=== PATIENT | female | born 2000 | race Hispanic/Latino ===

== ENCOUNTER 2022-06-15 23:48 | Emergency (ER) | payer OTHER ==
[2022-06-16] MEDS ORDERED: Bacitracin 1 PK ONE (00:16)
== END 2022-06-16 00:24 | disposition home or self-care (01) ==
LOC: CSHERS 23:48
DX: S51.012D Laceration without foreign body of left elbow, subsequent encounter (principal); F17.290 Nicotine dependence, other tobacco product, uncomplicated; X58.XXXD Exposure to other specified factors, subsequent encounter

== ENCOUNTER 2022-06-16 21:34 | Emergency (ER) | payer OTHER | END 2022-06-16 22:18 | disposition home or self-care (01) | LOC: CSHERS 21:34 | DX: L03.114 Cellulitis of left upper limb (principal); F17.290 Nicotine dependence, other tobacco product, uncomplicated | CPT/HCPCS: 87070; 87205 ==

== ENCOUNTER 2022-06-17 03:38 | Emergency (ER) | payer OTHER | END 2022-06-17 04:36 | disposition home or self-care (01) | LOC: CSHERS 03:38 | DX: L03.114 Cellulitis of left upper limb (principal); F17.290 Nicotine dependence, other tobacco product, uncomplicated | CPT/HCPCS: 87070; 87077; 87186; 87205; 99282; 99283 ==

== ENCOUNTER 2022-06-18 11:39 | Emergency (ER) | payer OTHER | END 2022-06-18 13:06 | disposition home or self-care (01) | LOC: CSHERS 11:39 | DX: Z48.817 Encounter for surgical aftercare following surgery on the skin and subcutaneous tissue (principal); M79.89 Other specified soft tissue disorders; F17.290 Nicotine dependence, other tobacco product, uncomplicated | CPT/HCPCS: 99283 ==

== ENCOUNTER 2023-05-19 12:08 | Emergency (ER) | payer OTHER ==
[2023-05-19 12:39] LABS: Bilirubin Neg (Negative); Blood, Urine 250 (Negative); Clarity Clear (Clear); Glucose, Urine (Dipstick) Normal (Negative); Ketone, Urine Negative (Negative); Leukocyte 25 (Negative); Nitrite Negative (Negative); Protein, Urine (Dipstick) 15 mg/dl (Neg-Trace); Specific Gravity, Urine 1.015 (1.005-1.030); Urobilinogen Normal mg/dL (Less than 2); pH, Urine 6.5 (5.0-9.0)
[2023-05-19 12:44] LABS: Pregnancy Test - Urine (BHCG) Negative (Negative); Pregu Control Background? CLEAR/WHITE (CLR/WHITE); Pregu Control Bar Appear? YES (CONTROL BAR); Specific Gravity 1.015 (1.002-1.036)
[2023-05-19 12:49] LABS: Bacteria/HPF Rare-Few HPF (None Seen); Squamous Epithelial 0-3 HPF (0-3); WBC/HPF 0-3 HPF (0-3)
== END 2023-05-19 14:21 | disposition home or self-care (01) ==
LOC: CSHERS 12:08
DX: N39.0 Urinary tract infection, site not specified (principal); K59.00 Constipation, unspecified; F17.290 Nicotine dependence, other tobacco product, uncomplicated
CPT/HCPCS: 74022; 81003; 81015; 81025

== ENCOUNTER 2023-06-11 11:36 | Emergency (ER) | payer OTHER ==
[2023-06-11] MEDS ORDERED: Acetaminophen 500 MG TAB ONE (13:49)
== END 2023-06-11 14:41 | disposition home or self-care (01) ==
LOC: CSHERS 11:36
DX: J02.9 Acute pharyngitis, unspecified (principal); L25.9 Unspecified contact dermatitis, unspecified cause
CPT/HCPCS: 87081; 87430; 99284

== ENCOUNTER 2023-08-02 19:18 | Emergency (ER) | payer OTHER ==
[2023-08-02 21:16] LABS: #Eosinphils 0.1 10x3/uL (0.0-0.5); #Monocytes 0.5 10x3/uL (0.0-1.1); #Neutrophils 5.4 10x3/uL (1.5-8.4); %Basophils 0.6 % (0.0-2.0); %Monocytes 7.3 % (0.0-10.0); %Neutrophils 73.8 % (40.0-75.0); Hematocrit 37.2 % (34.9-44.5); Hemoglobin 11.4 g/dL (12.0-15.5); Mean Corpuscular HGB CONC 30.6 g/dL (32.0-36.0); Mean Platelet Volume 10.4 fl (7.4-10.4); Platelet Count 337 10x3/uL (150-450); RBC Distribution Width 17.7 % (11.5-14.5); Red Blood Cell (RBC) Count 4.96 10x6/uL (3.90-5.03); White Blood Cell (WBC) Count 7.3 10x3/uL (3.5-10.5)
[2023-08-02 21:23] LABS: ALT (SGPT) 22 U/L (8-55); AST (SGOT) 20 U/L (5-34); Albumin 4.4 g/dL (3.5-5.0); Alkaline Phosphatase 74 U/L (40-100); Anion Gap 14 mmol/L (10-20); BUN (Urea Nitrogen) 13 mg/dL (7.0-18.7); Bilirubin, Total 0.5 mg/dL (0.2-1.2); Calc. Creatinine Clearance 0 mL/min (70-130); Calcium 9.5 mg/dL (7.8-10.44); Carbon Dioxide 25 mmol/L (22-29); Chloride 104 mmol/L (98-107); Estimated GFR 110; Globulin 3.4 g/dL (2.4-3.5); Glucose 81 mg/dL (70-105); Potassium 4.2 mmol/L (3.5-5.1); Protein, Total 7.8 g/dL (6.0-8.3); Sodium 139 mmol/L (136-145)
[2023-08-02 22:42] LABS: Bilirubin Neg (Negative); Blood, Urine 250 (Negative); Clarity Clear (Clear); Glucose, Urine (Dipstick) Normal (Negative); Ketone, Urine Negative (Negative); Leukocyte Negative (Negative); Nitrite Negative (Negative); Protein, Urine (Dipstick) 15 mg/dl (Neg-Trace); Urobilinogen Normal mg/dL (Less than 2)
[2023-08-02 22:46] LABS: Pregnancy Test - Urine (BHCG) Negative (Negative)
[2023-08-02 22:47] LABS: Pregu Control Background? CLEAR/WHITE (CLR/WHITE); Pregu Control Bar Appear? YES (CONTROL BAR)
[2023-08-02 23:21] LABS: CAUTI Indications for Culture Pelvic or flank pain; WBC/HPF 0-3 HPF (0-3)
[2023-08-02 23:22] LABS: Bacteria/HPF Rare-Few HPF (None Seen); Urine Culture Reflex No No
[2023-08-04 11:55] LABS: Chlamydia by PCR, Vaginal Swab Not Detected (NotDetected); GC by PCR, Vaginal Swab Not Detected (NotDetected)
== END 2023-08-03 00:49 | disposition home or self-care (01) ==
LOC: CSHERS 19:18
DX: N76.0 Acute vaginitis (principal); F17.290 Nicotine dependence, other tobacco product, uncomplicated
CPT/HCPCS: 36415; 80053; 81001; 81025; 85025; 87480; 87491; 87510; 87591; 87660; 99283

== ENCOUNTER 2023-09-02 08:17 | Emergency (ER) | payer OTHER ==
[2023-09-02 09:06] LABS: Bilirubin Neg (Negative); Blood, Urine 10 (Negative); Glucose, Urine (Dipstick) Normal (Negative); Ketone, Urine Negative (Negative); Leukocyte 100 (Negative); Nitrite Negative (Negative); Protein, Urine (Dipstick) Negative (Neg-Trace); Urobilinogen Normal mg/dL (Less than 2)
[2023-09-02 09:13] LABS: Clarity Clear (Clear); Pregnancy Test - Urine (BHCG) Negative (Negative)
[2023-09-02 09:14] LABS: Pregu Control Background? CLEAR/WHITE (CLR/WHITE); Pregu Control Bar Appear? YES (CONTROL BAR)
[2023-09-02 09:15] LABS: Bacteria/HPF 1+ HPF (None Seen); CAUTI Indications for Culture Dysuria,urgency,freq; RBC/HPF 0-3 HPF (0-3)
[2023-09-02 09:17] LABS: Urine Culture Reflex No No
[2023-09-02 17:09] LABS: GC by PCR, Vaginal Swab Not Detected (NotDetected)
[2023-09-04 23:37] LABS: HSV 1 - DNA Negative (Negative); HSV 2 - DNA Negative (Negative)
== END 2023-09-02 12:23 | disposition home or self-care (01) ==
LOC: CSHERS 08:17
DX: N39.0 Urinary tract infection, site not specified (principal); F17.290 Nicotine dependence, other tobacco product, uncomplicated
CPT/HCPCS: 36415; 81001; 81025; 87086; 87480; 87510; 87529; 87591; 87660; 99283

== ENCOUNTER 2025-08-07 09:54 | Emergency (ER) | payer SELFPAY ==
[2025-08-07] MEDS ORDERED: Ketorolac Tromethamine 30 MG (1 mL) VIAL ONE (10:41)
[2025-08-07] MEDS ORDERED: Acetaminophen 500 MG TAB ONE (10:41)
== END 2025-08-07 11:18 | disposition home or self-care (01) ==
LOC: CSHERS 09:54
DX: B34.9 Viral infection, unspecified (principal); F17.290 Nicotine dependence, other tobacco product, uncomplicated
CPT/HCPCS: 71045; 93005; 93010; 96372; J1885; Q0162